=== PATIENT | male | born 1960 | race Caucasian/White ===

== ENCOUNTER 2021-12-27 10:57 | Emergency (ER) | payer BC, SELFPAY ==
[2021-12-27] VITALS (15 sets, daily range): BP systolic 179–229; BP diastolic 97–111; PULSE 56–74; RESP 12–17; TEMP 36.8; O2SAT 97–100; BMI 24.3
--- NOTE | 2021-12-27 11:09 | DI.RAD.S_ITS ---
PROCEDURE: XR CHEST 1V INDICATIONS: chest pain TECHNIQUE: One view of the chest was acquired. COMPARISON: None. FINDINGS: Surgical changes and devices: None. Lungs and pleura: Lungs are clear. No pleural effusions or pneumothorax. Mediastinum: Mediastinal contours appear normal. Heart size is normal. Bones and chest wall: No suspicious bony lesions. Overlying soft tissues appear unremarkable. IMPRESSION: No acute cardiopulmonary pathology. Dictated by: Caleb Browning M.D. on 12/27/2021 at 11:37 Approved by: Caleb Browning M.D. on 12/27/2021 at 11:40
[2021-12-27 11:28] LABS: Add Manual Diff / Slide Review NO; Basophils Absolute Auto 100 /uL (0-100); Eosinophils Absolute Auto 300 /uL (0-450); Eosinophils Percent Auto 3.8 % (2-4); Hematocrit 43.6 % (41-53); Hemoglobin 15.5 g/dL (13.5-17.5); Lymphocytes Absolute Auto 1800 /uL (1100-4500); Lymphocytes Percent Auto 21.5 % (25-40); Mean Corpuscular HGB Conc 35.5 % (30-36); Mean Corpuscular Hemoglobin 30.5 PG (26-34); Mean Corpuscular Volume 85.9 fL (80-100); Monocytes Absolute Auto 400 /uL (0-900); Monocytes Percent Auto 5.4 % (3-14); Neutrophils Absolute Auto 5600 /uL (1500-7000); Neutrophils Percent Auto 68.3 % (50-75); Platelet Count 302 X10^3/uL (150-400); Red Blood Cell Count 5.08 X10^6/uL (4.5-5.9); Red Cell Distribution Width 12.8 % (11.6-14.8); White Blood Cell Count 8.3 X10^3/uL (4.5-11.0)
--- NOTE | 2021-12-27 11:32 | ED_ITS ---
HPI - General Adult General Chief complaint: Hypertension Stated complaint: BP 206/116-blurry vision Time Seen by Provider: 12/27/21 11:31 Source: patient Mode of arrival: Ambulatory History of Present Illness HPI narrative: Patient is a 61-year-old male history of hypertension is recently started on lisinopril 10 mg presenting today with headache and elevated blood pressure. He is actually from [place], has blood pressure was noted to be consistently in the 180s he was instructed he can go up to 20 mg once a day. This morning he took his blood pressure and was over 200. He has very slight headache behind his eyes. No nausea, vomiting, chest pain or shortness breath no numbness tingling or weakness. Blood pressure in the ED 229/107. He is actually on his boat trying to go to [place]. Related Data Previous Rx's Medication Instructions Recorded hydrochlorothiazide 12.5 mg tablet 12.5 mg PO QAM #30 tab 12/27/21 Allergies Allergy/AdvReac Type Severity Reaction Status Date / Time No Known Drug Allergies Allergy Verified 12/27/21 11:13 Review of Systems Review of Systems Narrative: GENERAL: Denies chills, fatigue, malaise, fever, sweats, travel HEENT: Denies sinus pain, ear pain, sore throat, difficulty swallowing, neck pa in RESPIRATORY: Denies dyspnea, cough, wheezing, hemoptysis, sputum. CARDIOVASCULAR: Denies chest pain, palpitations, orthopnea, edema GASTROINTESTINAL: Denies nausea, vomiting, abdominal pain, diarrhea, constipation, melena. : Denies dysuria, frequency, incontinence, hematuria, urinary retention, flank pain. MUSCULOSKELETAL: Denies weakness, joint pain, or bony pain SKIN: No rash, no erythema, no pruritus NEUROLOGIC: Denies weakness, dizziness, numbness, change in speech, confusion PSYCHIATRIC: No concerning psychosocial issues. 12 point review of systems is negative except for those stated above and HPI Patient History Medical History (Updated 12/27/21 @ 20:09 by Roxy Stein DO) Hypertension Social History Smoking Status: Never smoker Smoking Status: Never smoker alcohol intake frequency: a few times a week Substance Use Type: does not use Exam Initial Vital Signs Initial Vital Signs: Vital Signs Temperature 98.2 F 12/27/21 11:09 Pulse Rate 74 12/27/21 11:09 Respiratory Rate 16 12/27/21 11:09 Blood Pressure 229/107 H 12/27/21 11:09 Pulse Oximetry 97 12/27/21 11:09 GENERAL: Well-appearing, well-nourished and in no acute distress. HEENT: Head atraumatic,EOMI, pupils reactive, face symmetric, moist mucous membranes CARDIOVASCULAR: Regular rate and rhythm without murmurs, rubs or gallops. RESPIRATORY: Breath sounds equal bilaterally, no wheezes rales or rhonchi. ABDOMEN: Soft, nontender. Normoactive bowel sounds all 4 quadrants. No guarding or rebound. EXTREMITIES: Normal range of motion, no clubbing or edema. Neurovascularly intact NEUROLOGICAL: Alert and oriented x4.Normal gait and speech. Cranial nerves II through XII grossly intact. Evaporator Helper strength equal bilaterally lower extremity strength equal SKIN: Warm, dry, no laceration, no petechiae, no rashes or lesions. Course Orders Ordered: ED Orders 12/27/21 11:09 XR chest 1V Stat 12/27/21 11:20 Complete Blood Count AUTO DIFF Stat Comprehensive Metabolic Panel Stat Lipase Stat Magnesium Stat Troponin & CK Cardiac Panel Stat 12/27/21 11:22 EKG-12 Lead Stat Discontinued Medications Labetalol HCl (Labetalol 20 Mg/4 Ml Syringe) 10 mg IV NOW ONE Stop: 12/27/21 11:40 Last Admin: 12/27/21 11:57 Dose: 10 mg Documented by: [email or web address] Vital Signs Vital signs: Vital Signs - 8 hr 12/27/21 12:10 12/27/21 12:20 12/27/21 12:30 Pulse Rate 56 L 58 L 59 L Respiratory Rate 17 12 12 Blood Pressure 179/97 H 182/101 H 182/102 H Pulse Oximetry 98 98 99 12/27/21 12:40 12/27/21 12:42 12/27/21 12:50 Pulse Rate 59 L 56 L 56 L Respiratory Rate 13 12 Blood Pressure 185/105 H 185/105 H 183/101 H Pulse Oximetry 99 100 12/27/21 12:53 12/27/21 13:00 Pulse Rate 60 57 L Respiratory Rate 12 12 Blood Pressure 198/104 H 185/106 H Pulse Oximetry 99 99 Medical Decision Making Lab Data Result diagrams: 12/27/21 11:20 12/27/21 11:20 Labs: Lab Results 12/27/21 12/27/21 Range/Units 11:20 11:20 WBC 8.3 (4.5-11.0) X10^3/uL RBC 5.08 (4.5-5.9) X10^6/uL Hgb 15.5 (13.5-17.5) g/dL Hct 43.6 (41-53) % MCV 85.9 (80-100) fL MCH 30.5 (26-34) PG MCHC 35.5 (30-36) % RDW 12.8 (11.6-14.8) % Plt Count 302 (150-400) X10^3/uL Neut % (Auto) 68.3 (50-75) % Lymph % (Auto) 21.5 L (25-40) % Crisp % (Auto) 5.4 (3-14) % Eos % (Auto) 3.8 (2-4) % Baso % (Auto) 1.0 (0-2) % Neut # (Auto) 5600 (5039-3569) /uL Lymph # (Auto) 1800 (4445-6010) /uL Crisp # (Auto) 400 (0-900) /uL Eos # (Auto) 300 (0-450) /uL Baso # (Auto) 100 (0-100) /uL Sodium 138 (137-145) mmol/L Potassium 4.4 (3.4-5.1) mmol/L Chloride 104 (98-107) mmol/L Carbon Dioxide 24 (22-32) mmol/L BUN 11 (9-20) mg/dL Creatinine 0.96 (0.66-1.25) mg/dL Estimated GFR > 60 (>60) mL/min BUN/Creatinine Ratio 11.5 (6-22) Glucose 106 (80-110) mg/dL Calcium 9.0 (8.4-10.2) mg/dL Magnesium 2.1 (1.6-2.3) mg/dL Total Bilirubin 1.8 H (0.2-1.3) mg/dL AST 36 (17-59) IU/L ALT 25 (<50) IU/L Alkaline Phosphatase 65 (38-126) U/L Total Creatine Kinase 284 H (55-170) U/L CK-MB (CK-2) 2.42 H (<2.37) ng/mL CK-MB (CK-2) Rel Index 0.9 L (1.5-5.0) % Troponin I < 0.012 (0.01-0.034) ng/mL Total Protein 8.3 H (6.3-8.2) g/dL Albumin 4.9 (3.5-5.0) g/dL Globulin 3.4 (1.7-4.1) g/dL Albumin/Globulin Ratio 1.4 (1.0-2.8) Lipase 139 (23-300) U/L Imaging Data Chest x-ray: Radiologist's Impression: ?Elvia Wilcox MR#: [id number] : 1960 Acct:[id number] Age/Sex: 61 / M Date of Service: 12/27/21 Loc: ED Accession Number: [id number] ?? Procedure: XR chest 1V Ordering Provider: Roxy Stein D.O. PROCEDURE:? XR CHEST 1V ? INDICATIONS:? chest pain ? TECHNIQUE:? One view of the chest was acquired.? ? COMPARISON:? None. ? FINDINGS:? ? Surgical changes and devices:? None.? ? Lungs and pleura:? Lungs are clear.? No pleural effusions or pneumothorax.? ? Mediastinum:? Mediastinal contours appear normal.? Heart size is normal.? ? Bones and chest wall:? No suspicious bony lesions.? Overlying soft tissues appear unremarkable.? ? IMPRESSION:? No acute cardiopulmonary pathology. ? ? Dictated by: Calbe Browning M.D. on 12/27/2021 at 11:37 ?? ECG Data Interpretation: Normal sinus rhythm rate 60 p.r. interval 150 QRS is [address] changes T- wave inversion noted in lead 3 only no priors to compare MDM Narrative Medical decision making narrative: Patient is given labetalol for his persistently elevated hypertension. He has a very slight headache which she does not want pain medication for it actually improved completely with labetalol and blood pressure control. He has no sign of end-organ damage. The patient sounds as though he consistently has a blood pressure in the 180s. He was started on a very small dose of lisinopril told by his PCP to increase it to 20 mg which I agree with that I will also add hydrochlorothiazide. He is out stay and has no intention of going back to his PCP at this time. He is supposed to move his but to last the hand I had a long discussion of risks with that at this time. He agrees to wait and let his blood pressure become more controlled and stabilized before he goes. Discharge Plan Departure Patient Disposition: Home Clinical Impression: Hypertension Instructions: DI for High Blood Pressure Activity Restrictions/Additional Instructions: *You have been diagnosed with hypertension *What to do: At this time blood work is overall reassuring. Please continue checking her blood pressure once a day and recording it. Your blood pressure should slowly start to decrease. *Continue to take medications as directed Lisinopril 20 mg once a day Hydrochlorothiazide 12.5 mg once daily in the AM *Follow up with your primary care provider in 2-3 days or call [phone] *Return to ER if you should have elevated blood pressure greater than 190/100, chest pain, headache, shortness of breath or any new, worsening or concerning symptoms Prescriptions: New hydrochlorothiazide 12.5 mg tablet 12.5 mg PO QAM Qty: 30 0RF
[2021-12-27 11:45] LABS: Alanine Aminotransferase 25 IU/L (<50); Albumin 4.9 g/dL (3.5-5.0); Albumin Globulin Ratio 1.4 (1.0-2.8); Alkaline Phosphatase 65 U/L (38-126); Aspartate Aminotransferase 36 IU/L (17-59); BUN Creatinine Ratio 11.5 (6-22); Bilirubin Total 1.8 mg/dL (0.2-1.3); Blood Urea Nitrogen 11 mg/dL (9-20); Carbon Dioxide 24 mmol/L (22-32); Chloride 104 mmol/L (98-107); Creatine Kinase 284 U/L (55-170); Estimated Glomerular Filt Rate > 60 mL/min (>60); Globulin 3.4 g/dL (1.7-4.1); Glucose 106 mg/dL (80-110); HEMOLYSIS < 15 (0-50); Lipase 139 U/L (23-300); Magnesium 2.1 mg/dL (1.6-2.3); Potassium 4.4 mmol/L (3.4-5.1); Sodium 138 mmol/L (137-145); Total Protein 8.3 g/dL (6.3-8.2)
[2021-12-27 11:56] LABS: Troponin I < 0.012 ng/mL (0.01-0.034)
[2021-12-27] MEDS: LABETALOL 20 MG/4 ML SYRINGE 10 MG IV (11:57)
[2021-12-27 11:59] LABS: CKMB % Relative Index 0.9 % (1.5-5.0); Creatine Kinase MB 2.42 ng/mL (<2.37)
== END 2021-12-27 13:00 | disposition home or self-care (01) ==
PROVIDERS: Emergency Provider Emergency Medicine
DX: I10 Essential (primary) hypertension (principal); Z79.899 Other long term (current) drug therapy
CPT/HCPCS: 36415; 71045; 80053; 82550; 82553; 83690; 83735; 84484; 85025; 93005; 93010; 96374; 99284